=== PATIENT | male | born 1970 | race Asian ===

== ENCOUNTER 2019-04-19 07:14 | Emergency (ER) | payer SELFPAY ==
[~2019-04-19] VITALS: Ht 167.6 cm; Wt 74.8 kg
[2019-04-19 07:17] VITALS: BP 160/92; Ht 167.6 cm; Wt 74.8 kg
== END 2019-04-19 08:01 | disposition other institution (70) ==
LOC: ED 07:14
DX: S31.131A Puncture wound of abdominal wall without foreign body, left upper quadrant without penetration into peritoneal cavity, initial encounter (principal); Y08.89XA Assault by other specified means, initial encounter; Y93.9 Activity, unspecified; Y92.89 Other specified places as the place of occurrence of the external cause; Y99.8 Other external cause status
CPT/HCPCS: 90715

== ENCOUNTER 2019-04-19 07:14 | Emergency (ER) | payer OTHER | END 2019-04-19 08:01 | disposition other institution (70) | LOC: ED 07:14 | DX: Z02.89 Encounter for other administrative examinations (principal) ==